=== PATIENT | female | born 1960 | race Caucasian/White ===

== ENCOUNTER 2020-02-21 11:14 | Outpatient (CLI) | payer OTHER ==
[2020-02-21 12:25] LABS: ALT (SGPT) 16 U/L (8-55); AST (SGOT) 14 U/L (5-34); Albumin 3.9 g/dL (3.4-4.8); Alkaline Phosphatase 162 U/L (40-110); Anion Gap 16 mmol/L (10-20); BUN (Urea Nitrogen) 9 mg/dL (9.8-20.1); Bilirubin, Total 1.3 mg/dL (0.2-1.2); Calc. Creatinine Clearance 0 mL/min (70-130); Calcium 9.5 mg/dL (7.8-10.44); Carbon Dioxide 26 mmol/L (23-31); Cardiac Risk 2.3 (Less than 4.5); Chloride 104 mmol/L (98-107); Cholesterol 150 mg/dl (< 200 Desired); Estimated GFR-MDRD 69; Globulin 3.3 g/dL (2.4-3.5); Glucose 212 mg/dL (80-115); HDL Cholesterol 65 mg/dL (>60 Neg Risk); LDL Cholesterol, Calculated 60 mg/dL; Potassium 4.5 mmol/L (3.5-5.1); Protein, Total 7.2 g/dL (6.0-8.3); Sodium 141 mmol/L (136-145); Triglycerides 125 mg/dL (Less than 150)
[2020-02-21 12:32] LABS: #Basophils 0.1 thou/uL (0.0-0.2); #Eosinphils 0.1 thou/uL (0.0-0.7); #Lymphocytes 1.7 thou/uL (1.20-3.40); #Monocytes 0.4 thou/uL (0.11-0.59); #Neutrophils 5.6 thou/uL (1.40-6.50); %Basophils 0.7 % (0.0-1.0); %Eosinophils 1.5 % (0.0-10.0); %Lymphocytes 21.2 % (21.0-51.0); %Monocytes 5.4 % (0.0-10.0); %Neutrophils 71.2 % (42.0-75.0); Hemoglobin 14.8 g/dL (12.0-16.0); Mean Corpuscular HGB CONC 30.4 g/dL (32.0-36.0); Mean Corpuscular Volume 91.9 fL (78.0-98.0); Mean Platelet Volume 6.1 fL (7.4-10.4); Platelet Count 377 thou/uL (130-400); RBC Distribution Width 13.2 % (11.5-14.5); Red Blood Cell (RBC) Count 5.29 mill/uL (4.20-5.40); White Blood Cell (WBC) Count 7.8 thou/uL (4.8-10.8)
--- NOTE | 2020-02-21 15:16 | RAD ---
RIGHT ELBOW FOUR VIEWS: 02/21/20 No fracture or joint effusion was seen. The bones appear normal. No specific abnormalities of concern were seen around the condyles. IMPRESSION: No acute findings. POS: HOME
--- NOTE | 2020-02-21 15:17 | RAD ---
RIGHT SHOULDER THREE VIEWS: 02/21/20 No fracture, dislocation, or AC joint widening was seen. There are no significant arthritic changes v isible. The scapula and visible adjacent ribs were unremarkable in appearance. IMPRESSION: No significant finding. POS: HOME
[2020-02-21 18:00] LABS: Creatinine, Urine 237.15 mg/dL (47-110); Microalbumin Urine 4.4 mg/dL (0.5-50.0); Microalbumin/Creat Ratio 18.6 mg/g (Less than 30)
== END 2020-02-21 11:15 | disposition home or self-care (01) ==
LOC: BURRAD 11:14
PROVIDERS: ATTEND Family Medicine
DX: M77.01 Medial epicondylitis, right elbow (principal); M77.11 Lateral epicondylitis, right elbow; M25.511 Pain in right shoulder; E11.9 Type 2 diabetes mellitus without complications
CPT/HCPCS: 36415; 80053; 80061; 82043; 84443; 85025

== ENCOUNTER 2022-03-14 13:20 | Emergency (ER) | payer OTHER | END 2022-03-14 14:30 | disposition home or self-care (01) | LOC: BURERS 13:20 | DX: S86.111A Strain of other muscle(s) and tendon(s) of posterior muscle group at lower leg level, right leg, initial encounter (principal); E11.9 Type 2 diabetes mellitus without complications; E78.5 Hyperlipidemia, unspecified; I10 Essential (primary) hypertension; Z79.899 Other long term (current) drug therapy; Z79.4 Long term (current) use of insulin; X58.XXXA Exposure to other specified factors, initial encounter ==